=== PATIENT | female | born 1940 | race Caucasian/White ===

== ENCOUNTER → 2018-06-14 13:20 | Outpatient (CLI) | payer MEDICARE, BC ==
[~2018-06-14 13:20] MED LIST: ACETAMINOP160 MG/5 M PEG; ASPIRIN325 MG PEG; BUSPAR10 MG PEG; COLACE100 MG PEG; MYCOSTATIN500000 UNI PEG; PEPCID AC20 MG PEG; PLAVIX75 MG PEG; SYNTHROID50 MCG PEG; ULTRAM50 MG PEG; XANAX1 MG PEG; ZOCOR20 MG PEG
[2018-06-28 10:28] VITALS: BMI 25.2
== END | disposition home or self-care (01) ==
LOC: D.RAD 13:00
DX: R13.10 Dysphagia, unspecified (principal)

== ENCOUNTER 2018-06-20 13:51 | Inpatient (IN) | payer MEDICARE, BC ==
[~2018-06-20] VITALS: Ht 157.5 cm; Wt 64.8 kg
--- NOTE | ~2018-06-20 | PN ---
PATIENT:JONI REDDING MEDICAL RECORD: [id number] LOCATION:[facility]bara[facility]endy ADMISSION DATE: 06/20/18 PROGRESS NOTE DATE OF SERVICE: 06/27/2018 SUBJECTIVE: The patient's case was discussed with staff. She has no new complaint. OBJECTIVE: The patient is eating significantly better. She is taking more nutrition orally. She has not been aggressive. ASSESSMENT: No change in diagnoses. PLAN: The patient will be maintained on current medicines, which I have reviewed. Her long-term prognosis is guarded. TRANSINT:[id number] Voice Confirmation ID: [id number] DOCUMENT ID: [id number] NADEGE SONG MD at 0935 CC: [id number] DICTATION DATE: 06/27/18 1051 TRAINING PROFESSIONAL: 06/27/18 1143 ADM IN [id number] [place] [address]
--- NOTE | ~2018-06-20 | PN ---
PATIENT:JONI REDDING MEDICAL RECORD: [id number] LOCATION:[facility] ADMISSION DATE: 06/20/18 PROGRESS NOTE DATE OF SERVICE: 07/06/2018 SUBJECTIVE: The patient's case was discussed with staff. She has no new complaint. OBJECTIVE: The patient denies intent to harm herself or others. She tolerates her medicines well. ASSESSMENT: No change in diagnoses. PLAN: The patient is eating much better. I think the PEG tube can be removed, but that is not the kind of decision a psychiatrist makes, but I am very encouraged by the improvement in her oral intake. I suspect that it will be removed at some point in the near future. She is reporting some depressive symptoms, but certainly no thoughts of harming herself. She is clearly calmer and eating much better. I am going to start her on Namenda for its memory enhancing properties. Her long-term prognosis is guarded. TRANSINT:[id number] Voice Confirmation ID: [id number] DOCUMENT ID: [id number] NADEGE SONG MD at 1249 CC: [id number] DICTATION DATE: 07/06/18 1640 INFECTION CONTROL PREVENTIONIST: 07/06/18 1733 ADM IN [facility] [address] [place] [address]
--- NOTE | ~2018-06-20 | PN ---
PATIENT:JONI REDDING MEDICAL RECORD: [id number] LOCATION:[facility] ADMISSION DATE: 06/20/18 PROGRESS NOTE DATE OF SERVICE: 06/23/2018 SUBJECTIVE: The patient's case was discussed with staff. She has no new complaint. OBJECTIVE: The patient is in good behavioral control with limited insight about her condition. She does tolerate her medicines reasonably well. Eye contact is fair. ASSESSMENT: No change in diagnoses. PLAN: Current medicines have been reviewed and will be maintained. Long-term prognosis is guarded. I am hopeful that the PEG tube can be removed soon. She is taking oral nutrition much better. TRANSINT:[id number] Voice Confirmation ID: [id number] DOCUMENT ID: [id number] NADEGE SONG MD at 1017 CC: [id number] DICTATION DATE: 06/23/181106 CRUSHER FOREMAN: 06/23/18 1200 ADM IN [place] [place] [address]
--- NOTE | ~2018-06-20 | PN ---
PATIENT:JONI REDDING MEDICAL RECORD: [id number] LOCATION:[facility] GoodWendy ADMISSION DATE: 06/20/18 PROGRESS NOTE DATE OF SERVICE: 07/08/2018 SUBJECTIVE: The patient's case was discussed with staff. She has no new complaint. OBJECTIVE: The patient is in good behavioral control. She has limited insight about her condition. She is tolerating her current medications well. ASSESSMENT: No change in diagnoses. PLAN: Current medicines have been reviewed and will be maintained. Long-term prognosis is guarded. I anticipate she can be returned to the shelter soon. TRANSINT:[id number] Voice Confirmation ID: [id number] DOCUMENT ID: [id number] NADEGE SONG MD at 1556 CC: [id number] DICTATION DATE: 07/08/18 1311 PHYSICAL THERAPY ATTENDANT: 07/08/18 1526 ADM IN [facility] [address] [id number]
--- NOTE | ~2018-06-20 | PN ---
PATIENT:JONI REDDING MEDICAL RECORD: [id number] LOCATION:[facility] GoodWendy ADMISSION DATE: 06/20/18 PROGRESS NOTE DATE OF SERVICE: 06/30/2018 SUBJECTIVE: The patient's case was discussed with staff. She has no new complaint. OBJECTIVE: The patient is tolerating her medications well. She is not excessively sedated. She is participating in treatment reasonably well. ASSESSMENT: No change in diagnoses. PLAN: Current medicines and therapies have been reviewed, both will be maintained. Long-term prognosis is guarded. TRANSINT:[id number] Voice Confirmation ID: [id number] DOCUMENT ID: [id number] NADEGE SONG MD at 1117 CC: [id number] DICTATION DATE: 06/30/18 1147 CONTROL TECHNICIAN: 06/30/18 1154 ADM IN [facility] [address] [place] [address]
--- NOTE | ~2018-06-20 | PN ---
PATIENT:JONI REDDING MEDICAL RECORD: [id number] LOCATION:[facility] Ho ADMISSION DATE: 06/20/18 PROGRESS NOTE DATE OF SERVICE: 07/03/2018 SUBJECTIVE: The patient was seen for daily rounds. Her case was discussed with staff. She has no new complaint. OBJECTIVE: The patient is oriented to person only. Her mood is flat. Her affect is constricted. She did receive p.r.n. Ativan last night because of some agitation. She has been restless and up and down through the night. She has no recollection of that. ASSESSMENT: No change in diagnoses. PLAN: Current medicines and therapies have been reviewed. I am going to treat her with a slightly higher dose of trazodone. TRANSINT:[id number] Voice Confirmation ID: [id number] DOCUMENT ID: [id number] NADEGE SONG MD at 0827 CC: [id number] DICTATION DATE: 07/03/18 1444 SOCIAL WORKER SCHOOL: 07/03/18 1517 ADM IN [place] [address] [place] [address]
--- NOTE | ~2018-06-20 | PN ---
PATIENT:JONI REDDING MEDICAL RECORD: [id number] LOCATION:[facility]ENT[facility] Good112 ADMISSION DATE: 06/20/18 PROGRESS NOTE DATE OF SERVICE: 06/25/2018 SUBJECTIVE: The patient's case was discussed with staff. She has no new complaint. OBJECTIVE: The patient denies intent to harm herself or others. She is much more interactive and cooperative. ASSESSMENT: No change in diagnoses. PLAN: The patient is going to have her current medications maintained. I am going to start her on Aricept at a dose of 5 mg at bedtime. TRANSINT:[id number] Voice Confirmation ID: [id number] DOCUMENT ID: [id number] NADEGE SONG MD at 0946 CC: [id number] DICTATION DATE: 06/25/18 1038 ASSOCIATE SCIENTIST: 06/25/18 1054 ADM IN [address] [id number] [place] [address]
--- NOTE | ~2018-06-20 | PN ---
PATIENT:JONI REDDING MEDICAL RECORD: [id number] LOCATION:[facility] Ho ADMISSION DATE: 06/20/18 PROGRESS NOTE DATE OF SERVICE: 06/28/2018 SUBJECTIVE: The patient's case was discussed with staff. She has no new complaint. OBJECTIVE: The patient is severely impaired cognitively, but cooperative with staff and redirection. ASSESSMENT: No change in diagnoses. PLAN: Current medicines have been reviewed and will be maintained. She is eating a little better. I think that is related to the Megace. Her long-term prognosis is guarded. TRANSINT:[id number] Voice Confirmation ID: [id number] DOCUMENT ID: [id number] NADEGE SONG MD at 1110 CC: [id number] DICTATION DATE: 06/28/18 1027 BUSINESS ANALYST MANAGER: 06/28/18 1049 ADM IN [place] [address] [place] [address]
--- NOTE | ~2018-06-20 | PN ---
PATIENT:JONI REDDING MEDICAL RECORD: [id number] LOCATION:[facility] GoodWendy ADMISSION DATE: 06/20/18 PROGRESS NOTE DATE OF SERVICE: 06/29/2018 SUBJECTIVE: The patient's case was discussed with staff. She has no new complaint. OBJECTIVE: The patient did not sleep well last night and was agitated and required p.r.n. medication. She is significantly and seriously impaired cognitively. She has been quite anxious and is only eating moderately. ASSESSMENT: No change in diagnoses. PLAN: Current medicines and therapies have been reviewed and will be maintained. I am going to start her on a low dose of Klonopin for her anxiety. Her long-term prognosis is guarded. TRANSINT:[id number] Voice Confirmation ID: [id number] DOCUMENT ID: [id number] NADEGE SONG MD at 2015 CC: [id number] DICTATION DATE: 06/29/18 111 MAGAZINE KEEPER: 06/29/18 1310 ADM IN [place] [address] [place] [address]
--- NOTE | ~2018-06-20 | PSY ---
PATIENT NAME:JONI REDDING MEDICAL RECORD: [id number] : 38 LOCATION:[facility]LEY[facility]anoj Ho5 ADMISSION DATE: 06/20/18 ACCOUNT: [id number] PSYCHIATRIC EVALUATION DATE OF EVALUATION: 06/20/18 PSYCHIATRIC EVALUATION IDENTIFYING DATA: The patient is 77 years old and she is admitted to the hospital on a voluntary basis. CHIEF COMPLAINT: Aggression. HISTORY OF PRESENT ILLNESS: The patient is an unfortunate woman who suffered a pretty significant hemispheric stroke about 2 months ago. Since then, she has been hospitalized and then transferred to the [facility] for a rehab stay. At the [facility], she has become aggressive and violent with staff and they have referred her to us for evaluation and stabilization. Unfortunately, the patient is not willing to talk to me right now. I am not sure if she is unable to talk, but I sense strongly that she is just angry and not wanting to interact with me. She does follow some simple directions. She is awake and clearly oriented to person, but other than that she is not willing to give me any information or cooperate at least at this point. Unfortunately, there are no other sources of information that I have available this evening, but I do have a med list and I will order those and then get more information and try to talk to her again in the morning. PAST MEDICAL HISTORY: Somewhat limited; but from her medication list, it is known that she has hypothyroidism and of course she most recently had a stroke. She is also taking medication for hypercholesterolemia, and because she is on Xanax and BuSpar, I am presuming an anxiety disorder. PAST PSYCHIATRIC HISTORY: Significant for an anxiety disorder, although I do not know how longstanding it is and I am not sure why someone who has had a life-changing stroke is not taking an antidepressant, but I will find out more about that tomorrow when there are records and probably will be starting her on an antidepressant. FAMILY HISTORY: Unknown. ALLERGIES: No known drug allergies. CURRENT MEDICATIONS: Include Zocor, Xanax, BuSpar, Ultram, Pepcid, Plavix, aspirin, and Synthroid. SOCIAL HISTORY: The patient is . She does have adult children involved with her care. I do not know anything about her social or occupational functioning or substance abuse at this point. MENTAL STATUS EXAMINATION: The patient is clearly awake, alert, and is oriented to person. She responds to her name, but she will not interact with me or cooperate. I think she can. I just think at this point she will not, but what I do not know is how impaired she is, but clearly it is going to be significant. ASSETS: Supportive family members. LIABILITIES: Limited insight. DIAGNOSTIC IMPRESSION: AXIS I: Vascular dementia. AXIS II: None. AXIS III: Hypothyroidism, status post stroke, hypercholesterolemia. AXIS IV: Severe. AXIS V: Global assessment of functioning is 20. PLAN: At this time, the patient's diagnoses are somewhat provisional based on limited information, but clearly she has had a large hemispheric stroke. Whether she was impaired prior to this and this is worsening of underlying condition is difficult to assess, but I am sure she has some level of cognitive impairment, but I just do not know how severe it certainly is within the realm of possibilities that she is primarily depressed or in some other way disturbed and I may change the diagnosis; but at this time, based on the stroke and the history of hypercholesterolemia, I am going to say that that is the primary diagnoses. At this point, I am just going to continue her home medicines while I observe her overnight, meet with the treatment team and get report in the morning about how she did, and also get additional records. TRANSINT:[id number] Voice Confirmation ID: [id number] DOCUMENT ID: [id number] NADEGE SONG MD at 1254 CC: [id number] DICTATION DATE: 06/20/18 180 CLINICAL PHARMACIST: 06/20/18 1844 ADM IN [facility] [address] [place] [address]
--- NOTE | ~2018-06-20 | PN ---
PATIENT:JONI REDDING MEDICAL RECORD: [id number] LOCATION:[facility] Ho ADMISSION DATE: 06/20/18 PROGRESS NOTE DATE OF SERVICE: 07/02/2018 SUBJECTIVE: The patient's case was discussed with staff. She has no new complaint. OBJECTIVE: The patient is in good behavioral control but severely impaired cognitively. I am pleased with the improvement in her oral intake and yesterday she ate a little over half of all of the meals presented to her. It is still not going to be enough, but it is a big improvement. The mine shifter reports that even though she did have quite a bit of time in bed, it was restless and that she was up and down a lot. The patient does not have any recollection of this. ASSESSMENT: No change in diagnoses. PLAN: I am going to start the patient on a small dose of trazodone to assist with sleep consolidation. She will be monitored for clinical changes associated with its use. TRANSINT:[id number] Voice Confirmation ID: [id number] DOCUMENT ID: [id number] NADEGE SONG MD at 1203 CC: [id number] DICTATION DATE: 07/02/18 1557 DEEP FAT COOK FRY: 07/02/18 1748 ADM IN [place] [place] [address]
--- NOTE | ~2018-06-20 | PN ---
PATIENT:JONI REDDING MEDICAL RECORD: [id number] LOCATION:SENT[facility]IL Ho ADMISSION DATE: 06/20/18 PROGRESS NOTE DATE OF SERVICE: 07/11/2018 SUBJECTIVE: The patient's case was discussed with staff. She has no new complaint. OBJECTIVE: The patient is in good behavioral control with limited insight about her condition. She generally tolerates her medicines well. ASSESSMENT: No change in diagnoses. PLAN: Supportive and educational interventions were made. The patient's long-term prognosis is guarded. There is no evidence of acute or direct dangerousness, and she will be transitioned out of the hospital today and will be going to the [facility]. She will be followed on an outpatient basis by their primary care physician. TRANSINT:[id number] Voice Confirmation ID: [id number] DOCUMENT ID: [id number] NADEGE SONG MD at 1021 CC: [id number] DICTATION DATE: 07/11/18 1209 COMB TENDER: 07/11/18 1234 DIS IN 07/11/18 [id number] [place] [address]
--- NOTE | ~2018-06-20 | PN ---
PATIENT:JONI REDDING MEDICAL RECORD: [id number] LOCATION:SENT[facility]IL GoodWendy ADMISSION DATE: 06/20/18 PROGRESS NOTE DATE OF SERVICE: 07/10/2018 SUBJECTIVE: The patient's case was discussed with staff. She has no new complaint. OBJECTIVE: The patient is in good behavioral control with limited insight about her condition. She does tolerate her medicines well. She denies suicidal or homicidal thoughts. ASSESSMENT: No change in diagnoses. PLAN: Current medicines will be maintained. The patient's long-term prognosis is guarded. TRANSINT:[id number] Voice Confirmation ID: [id number] DOCUMENT ID: [id number] NADEGE SONG MD at 1133 CC: [id number] DICTATION DATE: 07/10/18 1525 BATH TESTER: 07/10/18[address]M IN [facility] [address] [place] [address]
--- NOTE | ~2018-06-20 | PN ---
PATIENT:JONI REDDING MEDICAL RECORD: [id number] LOCATION:SENTHIL Ho ADMISSION DATE: 06/20/18 PROGRESS NOTE DATE OF SERVICE: 07/09/2018 SUBJECTIVE: The patient's case was discussed with staff. She has no new complaint. OBJECTIVE: The patient denies intent to harm herself or others. She is tolerating her medications well. She earlier today was quite confused, taking through the garbage, saying that she was looking for a baby. She has no recollection of this. When the staff tried to redirect her on what she was doing, she became angry, but she did not assault them and they did not have to give her p.r.n. medication. She is not sleeping adequately. I am going to increase her Geodon to 20 mg twice daily and will watch her for evidence of sedation. TRANSINT:[id number] Voice Confirmation ID: [id number] DOCUMENT ID: [id number] NADEGE SONG MD at 1042 CC: [id number] DICTATION DATE: 07/09/18 1629 TRAUMA REGISTRAR: 07/09/18 1749 ADM IN [facility] [address] [place] [address]
--- NOTE | ~2018-06-20 | PN ---
PATIENT:JONI REDDING MEDICAL RECORD: [id number] LOCATION:SENT[facility]IL Ho ADMISSION DATE: 06/20/18 PROGRESS NOTE DATE OF SERVICE: 06/22/2018 SUBJECTIVE: The patient's case was discussed with staff. She has no new complaint. OBJECTIVE: The patient is in good behavioral control. She has poor insight about her condition. She does tolerate her medicines well. ASSESSMENT: No change in diagnoses. PLAN: Supportive and educational interventions were made. Long-term prognosis is guarded. The patient will have her BuSpar reduced to 20 mg daily. BuSpar is being used to treat her underlying anxiety. She will be monitored for clinical changes associated with its use. TRANSINT:[id number] Voice Confirmation ID: [id number] DOCUMENT ID: [id number] NADEGE SONG MD at 1043 CC: [id number] DICTATION DATE: 06/22/18 1010 SHERIFF DEPUTY: 06/22/18 1018 ADM IN [place] [place] [address]
--- NOTE | ~2018-06-20 | PN ---
PATIENT:JONI REDDING MEDICAL RECORD: [id number] LOCATION:SENTHIL Ho ADMISSION DATE: 06/20/18 PROGRESS NOTE DATE OF SERVICE: 06/26/2018 SUBJECTIVE: The patient's case was discussed with staff. She has no new complaint. OBJECTIVE: The patient denies intent to harm herself or others. She is eating about half of her meals, which she is marginally acceptable. She is sleeping well. She clearly is severely confused, but has not been agitated. ASSESSMENT: No change in diagnoses. PLAN: At this time, I am going to reduce the patient's BuSpar to 5 mg twice daily. I simply do not see a clinical indication for it. I probably will reduce it or discontinue it prior to her leaving. TRANSINT:[id number] Voice Confirmation ID: [id number] DOCUMENT ID: [id number] NADEGE SONG MD at 0909 CC: [id number] DICTATION DATE: 06/26/18 1010 ROPE TWISTING MACHINE OPERATOR: 06/26/18 1109 ADM IN [place] [place] [address]
--- NOTE | ~2018-06-20 | PN ---
PATIENT:JONI REDDING MEDICAL RECORD: [id number] LOCATION:SENTHIL GoodWendy ADMISSION DATE: 06/20/18 PROGRESS NOTE DATE OF SERVICE: 07/01/2018 SUBJECTIVE: The patient's case was discussed with staff. She has no new complaint. OBJECTIVE: The patient is in good behavioral control. She has limited insight about her condition. She generally tolerates her medicines well. She is only eating marginally well. I am not sure if she is going to get her PEG tube removed. TRANSINT:[id number] Voice Confirmation ID: [id number] DOCUMENT ID: [id number] NADEGE SONG MD at 1502 CC: [id number] DICTATION DATE: 07/01/18 1136 STEWARD/STEWARDESS BATH: 07/01/18 1242 ADM IN [place] [place] [place] [address]
--- NOTE | ~2018-06-20 | PN ---
PATIENT:JONI REDDING MEDICAL RECORD: [id number] LOCATION:GurvinderEDELMIRAManoj GurvinderBarbaraWendy ADMISSION DATE: 06/20/18 PROGRESS NOTE DATE OF SERVICE: 07/05/2018 SUBJECTIVE: The patient's case was discussed with staff. She has no new complaint. OBJECTIVE: The patient is in good behavioral control with limited insight about her condition. She is quite confused, but has not been openly agitated today. She does appear calmer. I think that this is related to the increase in her Klonopin. I will watch her for evidence of sedation. TRANSINT:[id number] Voice Confirmation ID: [id number] DOCUMENT ID: [id number] NADEGE SONG MD at 1627 CC: [id number] DICTATION DATE: 07/05/18 1711 HOME HEALTH SCHEDULER: 07/05/18 2148 ADM IN [id number] [place] [address]
--- NOTE | ~2018-06-20 | PN ---
PATIENT:JONI REDDING MEDICAL RECORD: [id number] LOCATION:SENTHIL GoodWendy ADMISSION DATE: 06/20/18 PROGRESS NOTE DATE OF SERVICE: 07/04/2018 SUBJECTIVE: The patient's case was discussed with staff. She has no new complaint. OBJECTIVE: The patient denies intent to harm herself or others. She is generally tolerating her medicines well, but is still not sleeping adequately. She did receive some p.r.n. medication because of agitation last night. I am going to increase the dose of her Klonopin slightly. TRANSINT:[id number] Voice Confirmation ID: [id number] DOCUMENT ID: [id number] NADEGE SONG MD at 1613 CC: [id number] DICTATION DATE: 07/04/18 1217 CAN FILLING MACHINE OPERATOR: 07/04/18 1242 ADM IN [place] [place] [address]
--- NOTE | ~2018-06-20 | DS ---
PATIENT:JONI REDDING :38 MEDICAL RECORD: [id number] DISCHARGE SUMMARY ADMISSION DATE: 06/20/18 DISCHARGE DATE: 07/11/18 IDENTIFYING DATA: The patient is 77 years old and she was admitted to the hospital on a voluntary basis because of aggression. The patient suffered a significant right hemispheric stroke about 2 months ago. Since then, she has been hospitalized and subsequently [facility] to a [facility] for a [facility] stay. At the [facility], she became aggressive and violent with the staff and they referred her to us for evaluation. The patient was clearly severely impaired cognitively and was behaviorally out of control. HOSPITAL COURSE: The patient was admitted to the hospital and fully evaluated from a medical, psychological, and social standpoint. She was treated with both mood stabilizing and memory enhancing medications. She subsequently showed improvement and was transferred to a [facility]dc. DISCHARGE DIAGNOSES: AXIS I: Vascular dementia. AXIS II: None. AXIS III: Hypothyroidism, status post stroke, hypercholesterolemia. AXIS IV: Moderate. AXIS V: Global assessment of functioning 30. PLAN: At the time of discharge, the patient was not acutely dangerous to herself or others. She was tolerating her medicines well. Her long-term prognosis is guarded. TRANSINT:[id number] Voice Confirmation ID: [id number] DOCUMENT ID: [id number] NADEGE SONG MD at 1309 CC: [id number] DICTATION DATE: 07/13/18 1331 WIRELINE SUPERVISOR: 07/13/181928 DIS IN 07/11/18 [address] [place] [address]
--- NOTE | ~2018-06-20 | PN ---
PATIENT:JONI REDDING MEDICAL RECORD: [id number] LOCATION:SENTHIL GoodWendy ADMISSION DATE: 06/20/18 PROGRESS NOTE DATE OF SERVICE: 06/24/2018 SUBJECTIVE: The patient's case was discussed with staff. She has no new complaint. OBJECTIVE: The patient is eating much better. She is not receiving anything through her PEG tube and hopefully that can be removed soon. She is quite confused. ASSESSMENT: No change in diagnoses. PLAN: Current medicines have been reviewed and will be maintained. Long-term prognosis is guarded. TRANSINT:[id number] Voice Confirmation ID: [id number] DOCUMENT ID: [id number] NADEGE SONG MD at 1017 CC: [id number] DICTATION DATE: 06/24/18 1258 CASHIER PARKING LOT: 06/24/18 1321 ADM IN [facility] [address] [place] [address]
--- NOTE | ~2018-06-20 | PN ---
PATIENT:JONI REDDING MEDICAL RECORD: [id number] LOCATION:GurvinderEDELMIRAManoj [place] ADMISSION DATE: 06/20/18 PROGRESS NOTE DATE OF SERVICE: 07/07/2018 SUBJECTIVE: The patient's case was discussed with staff. She has no new complaint. OBJECTIVE: The patient is in good behavioral control. She is eating and sleeping reasonably well. The increased dose of Klonopin seems to have significantly helped. I started her on Namenda yesterday. It does seem to be helping. There has not been aggressive behavior today. Her appetite has improved and I am optimistic that she can be transitioned out of the hospital soon. TRANSINT:[id number] Voice Confirmation ID: [id number] DOCUMENT ID: [id number] NADEGE SONG MD at 1556 CC: [id number] DICTATION DATE: 07/07/18 1302 FURNITURE ASSEMBLY SUPERVISOR: 07/07/18 1309 ADM IN [facility] [address] [place] [address]
--- NOTE | ~2018-06-20 | PN ---
PATIENT:JONI REDDING MEDICAL RECORD: [id number] LOCATION:[facility] ADMISSION DATE: 06/20/18 PROGRESS NOTE DATE OF SERVICE: 06/21/2018 SUBJECTIVE: The patient's case was discussed with staff. She has no new complaint. OBJECTIVE: The patient is talking to me today. She is only oriented to person. She has been aggressive and a problem with the staff. She has actually been hitting and spitting at them, but she is calm when I talked to her. She keeps calling various female staff members, Yoko. I found out later, Yoko, is a name of her daughter. I do have some additional history. Apparently, she has no history of alcohol or drug abuse and no psychiatric history, which is good. She does have 3 children. She graduated from high school and worked as a hospital unit clerk. 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 Just poses a type of stroke, but that was what occurred 45 days ago. She does have a son, who is her POA. ASSESSMENT: No changes in diagnoses. PLAN: Current medicines have been reviewed. I am going to maintain them, but I am also going to start her on Geodon at a dose of 20 mg at bedtime to assist with thought disorganization. TRANSINT:[id number] Voice Confirmation ID: [id number] DOCUMENT ID: [id number] NADEGE SONG MD at [id number] CC: [id number] DICTATION DATE: 06/21/18 1318 ENGRAVED ROLLER INSPECTOR: 06/21/18 1351 ADM IN [place] [id number] [place] [address]
[2018-06-20 15:56] VITALS: BP 134/92; BMI 25.4
[2018-06-20 16:43] VITALS: BP 134/92; BMI 25.4
[2018-06-20] MEDS ORDERED: ASPIRIN325 MG PEG (17:11)
[2018-06-20] MEDS ORDERED: BUSPAR10 MG PEG (17:12)
[2018-06-20] MEDS ORDERED: COLACE100 MG PEG (17:13)
[2018-06-20] MEDS ORDERED: MYCOSTATIN500000 UNI PEG (17:15)
[2018-06-20] MEDS ORDERED: PEPCID AC20 MG PEG (17:16)
[2018-06-20] MEDS ORDERED: PLAVIX75 MG PEG (17:17)
[2018-06-20] MEDS ORDERED: ULTRAM50 MG PEG (17:24)
[2018-06-20] MEDS ORDERED: SYNTHROID50 MCG PEG (17:24)
[2018-06-20] MEDS ORDERED: ACETAMINOP160 MG/5 M PEG (17:27)
[2018-06-20] MEDS ORDERED: XANAX1 MG PEG (17:29)
[2018-06-20] MEDS ORDERED: ZOCOR20 MG PEG (17:30)
[2018-06-20 18:03] LABS: APPEARANCE TURBID (CLEAR); COLOR YELLOW (YELLOW); SPECIFIC GRAVITY 1.005 (1.005-1.020)
[2018-06-20 18:04] LABS: BILIRUBIN NEGATIVE (NEGATIVE); GLUCOSE NEGATIVE (NEGATIVE); KETONE NEGATIVE (NEGATIVE); NITRITE POSITIVE (NEGATIVE); PROTEIN TRACE mg/dL (NEGATIVE); UROBILINOGEN NORMAL (NORMAL)
[2018-06-20 18:14] LABS: EPITHELIAL CELLS 0-5 /hpf (0-5); RED CELLS - URINE 0-5 /hpf (0-5); WHITE CELLS - URINE >50 /hpf (0-5)
[2018-06-20 18:15] LABS: BACTERIA MANY /hpf (NONE SEEN); TALC POWDER CRYSTALS 0-5 /hpf (NONE SEEN)
[2018-06-20 19:49] VITALS: BP 149/85
[2018-06-21 10:12] VITALS: BP 130/66
[2018-06-21 10:17] VITALS: BMI 25.2
[2018-06-21 21:21] VITALS: BP 130/78
[2018-06-22 09:11] VITALS: BP 145/74
[2018-06-22 13:03] LABS: BASOPHILS 0.4 % (0-2); HEMATOCRIT 35.6 % (36.0-48.0); HEMOGLOBIN 11.2 g/dL (12-16); IMMATURE GRANULOCYTES 0.3 % (0-5); LYMPHOCYTES 30.5 % (15-50); MCH 27.8 pg (26.0-34.0); MCHC 31.5 g/dL (31.0-37.0); MCV 88.3 fL (80.0-100.0); MEAN PLATELET VOLUME 10.9 fL (7.4-10.4); MONOCYTES 9.5 % (2-11); NEUTROPHILS 57.3 % (40-80); PLATELET COUNT 316 10x3/uL (130-400); RBC 4.03 10x6/uL (4.00-5.40); RDW 14.9 % (11.5-14.5)
[2018-06-22 13:31] LABS: ALBUMIN 2.8 g/dL (3.4-5.0); BILIRUBIN - TOTAL 0.28 mg/dL (0.2-1.3); CALCIUM 9.8 mg/dL (8.5-10.1); CREATININE - SERUM 0.9 mg/dL (0.6-1.3)
[2018-06-22 20:10] VITALS: BP 167/91
[2018-06-23 07:02] LABS: CHOL - HDL RATIO 3.2 ratio (2.3-4.1); LDL-HDL RATIO 1.7 ratio (1.5-3.5); THYROID STIMULATING HORMONE 2.31 uIU/mL (0.36-3.74)
[2018-06-23 11:05] VITALS: BP 147/70
[2018-06-23 20:24] VITALS: BP 153/86
[2018-06-24 08:00] VITALS: BP 130/80
[2018-06-24 21:01] VITALS: BP 145/84
[2018-06-25 07:00] VITALS: BP 130/79
[2018-06-25 19:22] VITALS: BP 131/71; BP 147/85
[2018-06-26 07:00] VITALS: BP 155/70
[2018-06-26 07:26] LABS: RAPID PLASMA REAGIN Non Reactive (Non Reactive)
[2018-06-26 07:47] LABS: BASOPHILS 0.4 % (0-2); EOSINOPHILS 2.8 % (0-7); HEMATOCRIT 33.5 % (36.0-48.0); HEMOGLOBIN 10.4 g/dL (12-16); IMMATURE GRANULOCYTES 0.4 % (0-5); LYMPHOCYTES 37.7 % (15-50); MCH 27.7 pg (26.0-34.0); MCV 89.1 fL (80.0-100.0); MEAN PLATELET VOLUME 10.5 fL (7.4-10.4); MONOCYTES 8.6 % (2-11); NEUTROPHILS 50.1 % (40-80); PLATELET COUNT 327 10x3/uL (130-400); RBC 3.76 10x6/uL (4.00-5.40); RDW 15.1 % (11.5-14.5); WBC 12.6 10x3/uL (4.8-10.8)
[2018-06-26 07:56] LABS: ANION GAP 9.2 mmol/L (8-16); CALCIUM 9.7 mg/dL (8.5-10.1); CARBON DIOXIDE 29.2 mmol/L (21.0-32.0); CREATININE - SERUM 0.8 mg/dL (0.6-1.3); POTASSIUM - SERUM 3.4 mmol/L (3.5-5.1)
[2018-06-26 20:19] VITALS: BP 162/88
[2018-06-27 08:00] VITALS: BP 158/83
[2018-06-27 19:23] VITALS: BP 157/67
[2018-06-28 09:26] VITALS: BP 156/87
[2018-06-28 10:28] VITALS: Ht 157.5 cm; Wt 64.8 kg
[2018-06-28 19:38] VITALS: BP 147/72
[2018-06-29 08:30] VITALS: BP 124/74
[2018-06-30 10:20] VITALS: BP 128/64
[2018-06-30 20:33] VITALS: BP 149/67
[2018-07-01 07:00] VITALS: BP 162/80
[2018-07-01 20:00] VITALS: BP 155/84
[2018-07-02 00:50] VITALS: BP 155/84
[2018-07-02 07:00] VITALS: BP 143/67
[2018-07-02 19:38] VITALS: BP 146/88
[2018-07-03 08:00] VITALS: BP 89/49
[2018-07-03 19:51] VITALS: BP 149/74
[2018-07-04 09:04] VITALS: BP 128/62
[2018-07-04 20:04] VITALS: BP 155/79
[2018-07-05 07:36] VITALS: BP 135/71
[2018-07-05 20:49] VITALS: BP 145/72
[2018-07-06 11:01] VITALS: BP 122/77
[2018-07-06 20:29] VITALS: BP 134/74
[2018-07-07 08:00] VITALS: BP 123/59
[2018-07-07 20:23] VITALS: BP 138/63
[2018-07-08 08:00] VITALS: BP 129/62
[2018-07-08 20:20] VITALS: BP 147/91
[2018-07-09 09:23] VITALS: BP 121/59
[2018-07-09 19:33] VITALS: BP 161/69
[2018-07-10 09:37] VITALS: BP 115/68
[2018-07-10] MEDS ORDERED: TRAZODONE HCL100 MG PO (10:47)
[2018-07-10] MEDS ORDERED: GEODON20 MG PO (10:47)
[2018-07-10] MEDS ORDERED: NAMENDA5 MG PO (10:47)
[2018-07-10] MEDS ORDERED: KLONOPIN0.5 MG PO (10:47)
[2018-07-10] MEDS ORDERED: RESTASIS EYE DROPS EACH EYE (10:47)
[2018-07-10] MEDS ORDERED: PROTONIX40 MG PO (10:48)
[2018-07-10] MEDS ORDERED: SENNA8.6 MG PO (10:48)
[2018-07-10 20:00] VITALS: BP 142/76
[2018-07-11 10:03] VITALS: BP 131/66
== END 2018-07-11 11:30 | DRG 57 ==
LOC: D.PSYCH 13:51
PROVIDERS: Family Medicine
DX: I69.318 Other symptoms and signs involving cognitive functions following cerebral infarction (principal); F01.51 Vascular dementia, unspecified severity, with behavioral disturbance; N39.0 Urinary tract infection, site not specified; E03.9 Hypothyroidism, unspecified; E78.00 Pure hypercholesterolemia, unspecified; I10 Essential (primary) hypertension; K21.9 Gastro-esophageal reflux disease without esophagitis; Z74.09 Other reduced mobility; E78.5 Hyperlipidemia, unspecified; F41.9 Anxiety disorder, unspecified; F32.9 Major depressive disorder, single episode, unspecified; G89.29 Other chronic pain; K59.09 Other constipation